=== PATIENT | male | born 1935 | race Two or more races ===

== ENCOUNTER 2017-04-11 18:56 | Inpatient (IN) | payer OTHER ==
[~2017-04-11] VITALS: Ht 165.1 cm; Wt 65.1 kg
[2017-04-11 20:19] LABS: Basophils # (auto) 0 uL; Basophils % (auto) 0.2 % (0.0-2.0); Eosinophils # (auto) 0.2 uL; Eosinophils % (auto) 1.5 % (0.0-7.0); Hematocrit 31.5 % (41.0-53.0); Lymphocytes # (auto) 1.9 uL; Lymphocytes % (auto) 19.2 % (10.0-50.0); Mean Corpuscular Hemoglobin 31.9 pg (28.0-32.0); Mean Corpuscular Volume 91.1 fL (80.0-100.0); Mean Platelet Volume 7.3 fL (6.9-10.8); Monocytes # (auto) 1.3 uL; Monocytes % (auto) 13.6 % (0.0-12.0); Neutrophils # (auto) 6.5 uL; Neutrophils % (auto) 65.5 % (37.0-80.0); Platelet Count (auto) 165 10^3/uL (140-450); Red Cell Distribution Width 13.7 % (11.8-14.3); White Blood Cell 9.9 10^3/uL (4.4-10.8)
[2017-04-11 20:35] LABS: INR 0.98 (0.9-1.15); Partial Thromboplastin Time 38.8 sec (22.64-33.71); Prothrombin Time 10.7 sec (9.37-12.3)
[2017-04-11 20:42] LABS: Albumin 2.7 g/dL (3.4-5.0); Potassium 3.5 mmol/L (3.5-5.1)
[2017-04-11 20:45] LABS: BUN/Creatinine Ratio 16.5
[2017-04-11 20:50] LABS: Bilirubin, Total 0.6 mg/dL (0.2-1.0); Total Protein 6.2 g/dL (6.4-8.2)
[2017-04-11 21:32] LABS: B-Type Natriuretic Peptide 279.2 pg/mL (0-100)
[2017-04-11 21:39] LABS: Temperature: 23.1 C (20.0-25.0)
[2017-04-12] VITALS (7 sets, daily range): BP systolic 115–140; BP diastolic 52–61
[2017-04-12 00:24] LABS: Urine Bilirubin Negative (Negative); Urine Blood TRACE /uL (Negative); Urine Color Yellow (Yellow); Urine Glucose Normal (Normal); Urine Ketone Negative (Negative); Urine Nitrite Negative (Negative); Urine RBC 18 /hpf (0 - 3); Urine Squamous Epithelial Cell FEW /hpf (<5); Urine Urobilinogen Normal (Negative); Urine WBC Clumps PRESENT /hpf (None Seen); Urine pH 5.5 (5.0-8.0)
[2017-04-12] MEDS ORDERED: cefTRIAXone 1GM/50ML D5W 50 ML IV ONE (01:45)
[2017-04-12] MEDS ORDERED: NITROGLYCERIN 0.4 MG SL TAB SL PRN (02:00)
[2017-04-12] MEDS ORDERED: HYDROcodone-ACET 5/325MG TAB PO PRN (02:00)
[2017-04-12] MEDS ORDERED: DOCUSATE SOD 100 MG CAP PO PRN (02:00)
[2017-04-12] MEDS ORDERED: FUROSEMIDE 20 MG/2 ML VIAL IV ONE (02:00)
[2017-04-12] MEDS ORDERED: MORPHINE SULF INJ 2 MG/ML SYRINGE 1ML IV PRN (02:00)
[2017-04-12] MEDS ORDERED: ACETAMINOPHEN 325 MG TAB PO PRN (02:00)
[2017-04-12] MEDS ORDERED: ONDANSETRON HCL 4 MG/2 ML VIAL IV PRN (02:00)
[2017-04-12 03:45] LABS: BUN/Creatinine Ratio 17.9; Calcium 8.2 mg/dL (8.5-10.1); Potassium 3.4 mmol/L (3.5-5.1)
[2017-04-12] MEDS ORDERED: ALL100T PO (06:11)
[2017-04-12] MEDS ORDERED: SULF-92 PO (06:11)
[2017-04-12] MEDS ORDERED: DILT240C59 PO (06:12)
[2017-04-12] MEDS ORDERED: PANT1INJ3 PO (06:12)
[2017-04-12] MEDS ORDERED: FER325T PO (06:13)
[2017-04-12] MEDS ORDERED: LOSA50TA30 PO (06:13)
[2017-04-12] MEDS ORDERED: DIPH50TA9 PO (06:14)
[2017-04-12] MEDS ORDERED: PRAV20TA3 PO (06:14)
[2017-04-12] MEDS ORDERED: ONDA4TAB5 PO (06:15)
[2017-04-12] MEDS ORDERED: SERT-160 PO (06:15)
[2017-04-12] MEDS ORDERED: LOPE1TAB9 PO (06:16)
[2017-04-12] MEDS ORDERED: LOPE1SUS PO (06:16)
[2017-04-12] MEDS ORDERED: ACETTAB85 PO (06:17)
[2017-04-12] MEDS ORDERED: CLO01T PO (06:17)
[2017-04-12] MEDS ORDERED: MIN25T PO (06:18)
[2017-04-12] MEDS: FAMOTIDINE 20 MG TAB PO SCH ×2 (09:48→21:14)
[2017-04-12] MEDS: cefTRIAXone 1GM/50ML D5W 50 ML IV SCH (09:48)
[2017-04-12] MEDS ORDERED: HCTZ 25 MG TAB PO SCH (10:00)
[2017-04-12] MEDS ORDERED: LOSARTAN POTASSIUM 50 MG TAB PO SCH (10:00)
[2017-04-12] MEDS ORDERED: ENOXAPARIN SOD 40 MG/0.4 ML SYRINGE SC SCH (10:00)
[2017-04-12] MEDS: SERTRALINE HCL 50 MG TAB PO SCH (10:03)
[2017-04-12] MEDS ORDERED: APIXABAN PO SCH (11:15)
[2017-04-12] MEDS: APIXABAN 2.5 MG TAB PO SCH ×2 (11:55→21:14)
[2017-04-12 12:38] LABS: Cholesterol 96 mg/dL (< 200); HDL Cholesterol 55 mg/dL (40-59); LDL Cholesterol 49 mg/dL (< 100); Triglycerides 33 mg/dL (< 150)
[2017-04-12] MEDS: SODIUM CHLORIDE 0.9% 1,000 ML IV SCH (15:45)
[2017-04-12] MEDS: PRAVASTATIN SODIUM 20 MG TAB PO SCH (21:14)
[2017-04-13 06:19] VITALS: BP 153/71
[2017-04-13 06:30] LABS: Basophils # (auto) 0 uL; Basophils % (auto) 0.3 % (0.0-2.0); Eosinophils # (auto) 0 uL; Eosinophils % (auto) 0.5 % (0.0-7.0); Hematocrit 37.4 % (41.0-53.0); Hemoglobin 12.8 g/dL (13.5-17.5); Lymphocytes # (auto) 0.9 uL; Lymphocytes % (auto) 10.8 % (10.0-50.0); Mean Corpuscular Hemoglobin 31.6 pg (28.0-32.0); Mean Corpuscular Hgb Conc. 34.3 g/dL (32.0-36.0); Mean Corpuscular Volume 92.2 fL (80.0-100.0); Mean Platelet Volume 7.1 fL (6.9-10.8); Monocytes % (auto) 11.8 % (0.0-12.0); Neutrophils # (auto) 6.2 uL; Neutrophils % (auto) 76.6 % (37.0-80.0); Platelet Count (auto) 213 10^3/uL (140-450); Red Cell Distribution Width 13.6 % (11.8-14.3); White Blood Cell 8.1 10^3/uL (4.4-10.8)
[2017-04-13 06:41] LABS: B-Type Natriuretic Peptide 261.04 pg/mL (0-100)
[2017-04-13 06:57] LABS: Temperature: 21.9 C (20.0-25.0)
[2017-04-13 07:01] LABS: Albumin 2.9 g/dL (3.4-5.0); BUN/Creatinine Ratio 21.1; Bilirubin, Total 0.5 mg/dL (0.2-1.0); Calcium 8.8 mg/dL (8.5-10.1); Magnesium 2.1 mg/dL (1.6-2.6); Potassium 3.4 mmol/L (3.5-5.1); Total Protein 7.2 g/dL (6.4-8.2)
[2017-04-13] MEDS: SODIUM CHLORIDE 0.9% 1,000 ML IV SCH (08:25)
[2017-04-13 09:00] VITALS: BP 149/73
[2017-04-13] MEDS: SERTRALINE HCL 50 MG TAB PO SCH (10:00)
[2017-04-13] MEDS: cefTRIAXone 1GM/50ML D5W 50 ML IV SCH (10:15)
[2017-04-13] MEDS: FAMOTIDINE 20 MG TAB PO SCH ×2 (10:19→22:00)
[2017-04-13] MEDS: APIXABAN 2.5 MG TAB PO SCH ×2 (10:19→22:00)
[2017-04-13] MEDS: NEOMYCIN-BACITRACIN-POLYM UNITDOSE PKG TOP OINT TOP SCH (10:20)
[2017-04-13 13:00] VITALS: BP 145/65
[2017-04-13] MEDS ORDERED: HALOPERIDOL 5 MG TAB PO PRN (16:00)
[2017-04-13] MEDS ORDERED: POTASSIUM CHL 20 Meq TABLET PO ONE (16:00)
[2017-04-13] MEDS ORDERED: SOD CHL 0.9%/ KCL 20MEQ 1,000 ML IV SCH (16:00)
[2017-04-13 17:00] VITALS: BP 162/90
[2017-04-13] MEDS ORDERED: BACITRACIN TOP OINT 1 UD PKG TOP SCH (17:00)
[2017-04-13] MEDS: METOPROLOL TARTRATE 25 MG TAB PO SCH ×2 (18:31→22:27)
[2017-04-13 20:00] VITALS: BP 154/92
[2017-04-13 21:40] VITALS: BP 154/92
[2017-04-13] MEDS: PRAVASTATIN SODIUM 20 MG TAB PO SCH (22:00)
[2017-04-14 04:59] VITALS: BP 143/70
[2017-04-14 07:08] LABS: Calcium 8.9 mg/dL (8.5-10.1); Potassium 4.2 mmol/L (3.5-5.1)
[2017-04-14 07:10] LABS: BUN/Creatinine Ratio 22.2
[2017-04-14 09:05] VITALS: BP 143/66
[2017-04-14] MEDS: APIXABAN 2.5 MG TAB PO SCH ×2 (09:20→21:38)
[2017-04-14] MEDS: FAMOTIDINE 20 MG TAB PO SCH ×2 (09:20→21:38)
[2017-04-14] MEDS: cefTRIAXone 1GM/50ML D5W 50 ML IV SCH (09:20)
[2017-04-14] MEDS: METOPROLOL TARTRATE 25 MG TAB PO SCH (09:21)
[2017-04-14] MEDS: NEOMYCIN-BACITRACIN-POLYM UNITDOSE PKG TOP OINT TOP SCH (10:00)
[2017-04-14] MEDS: SERTRALINE HCL 50 MG TAB PO SCH (10:00)
[2017-04-14 11:20] LABS: Temperature: 23.1 C (20.0-25.0)
[2017-04-14 12:52] VITALS: BP 138/70
[2017-04-14] MEDS ORDERED: DILTIAZEM HCL 120MG ER CAP PO ONE (13:00)
[2017-04-14 16:33] VITALS: BP 139/68
[2017-04-14 20:00] VITALS: BP 155/92
[2017-04-14] MEDS: PRAVASTATIN SODIUM 20 MG TAB PO SCH (21:38)
[2017-04-15] MEDS: cefTRIAXone 1GM/50ML D5W 50 ML IV SCH (08:34)
[2017-04-15 09:03] VITALS: BP 148/73
[2017-04-15] MEDS: FAMOTIDINE 20 MG TAB PO SCH (09:10)
[2017-04-15] MEDS: NEOMYCIN-BACITRACIN-POLYM UNITDOSE PKG TOP OINT TOP SCH (09:10)
[2017-04-15] MEDS: APIXABAN 2.5 MG TAB PO SCH (09:11)
[2017-04-15] MEDS: SERTRALINE HCL 50 MG TAB PO SCH (09:11)
[2017-04-15] MEDS ORDERED: DILTIAZEM HCL 120MG ER CAP PO SCH (10:00)
[2017-04-15 12:18] VITALS: BP 149/67
[2017-04-15] MEDS ORDERED: LOSARTAN POTASSIUM 25 MG TAB PO ONE (13:30)
[2017-04-15] MEDS ORDERED: LEVO250T45 PO ×2 (14:36→15:31)
[2017-04-15] MEDS ORDERED: SACC250C PO ×2 (14:36→15:31)
[2017-04-15] MEDS ORDERED: CLOP75TA28 PO (14:52)
[2017-04-15 15:05] VITALS: BP 149/67
== END 2017-04-15 18:18 | disposition home health service (06) | DRG 682 ==
LOC: ER 19:03 → TELE 19:04 → TELE-WESTW 04-12 03:35
PROVIDERS: ADMIT Nurse Practitioner; ATTEND Internal Medicine
DX: N17.0 Acute kidney failure with tubular necrosis (principal); G93.41 Metabolic encephalopathy; N39.0 Urinary tract infection, site not specified; E87.1 Hypo-osmolality and hyponatremia; I50.9 Heart failure, unspecified; I11.0 Hypertensive heart disease with heart failure; G30.9 Alzheimer's disease, unspecified; F02.80 Dementia in other diseases classified elsewhere, unspecified severity, without behavioral disturbance, psychotic disturbance, mood disturbance, and anxiety; I45.10 Unspecified right bundle-branch block; I48.91 Unspecified atrial fibrillation; Z79.01 Long term (current) use of anticoagulants; Z79.899 Other long term (current) drug therapy; Z91.81 History of falling; I69.320 Aphasia following cerebral infarction
CPT/HCPCS: 36415; 51702; 70450; 70551; 71010; 80048; 80053; 80061; 81001; 82607; 82746; 83735; 83880; 84443; 84484; 85025; 85610; 85730; 87086; 93005; 93306; 95819; 96365; 96375; 97116; 97530; J0696

== ENCOUNTER 2017-04-27 14:51 | Inpatient (IN) | payer OTHER ==
[~2017-04-27] VITALS: Ht 172.7 cm; Wt 59.8 kg
[~2017-04-27 14:51] MED LIST: ACETTAB85 PO; ALL100T PO; CLO01T PO; CLOP75TA28 PO; DILT240C59 PO; DIPH50TA9 PO; FER325T PO; LEVO250T45 PO; LOPE1SUS PO; LOPE1TAB9 PO; LOSA50TA30 PO; MIN25T PO; ONDA4TAB5 PO; PANT1INJ3 PO; PRAV20TA3 PO; SACC250C PO; SERT-160 PO
[2017-04-27 15:37] LABS: Basophils # (auto) 0.1 uL; Basophils % (auto) 1.1 % (0.0-2.0); Eosinophils # (auto) 0.1 uL; Eosinophils % (auto) 1.2 % (0.0-7.0); Hematocrit 38.1 % (41.0-53.0); Hemoglobin 12.8 g/dL (13.5-17.5); Lymphocytes # (auto) 2.6 uL; Lymphocytes % (auto) 27.2 % (10.0-50.0); Mean Corpuscular Hemoglobin 31.5 pg (28.0-32.0); Mean Corpuscular Hgb Conc. 33.5 g/dL (32.0-36.0); Mean Corpuscular Volume 93.9 fL (80.0-100.0); Monocytes # (auto) 0.8 uL; Monocytes % (auto) 8.4 % (0.0-12.0); Neutrophils # (auto) 5.8 uL; Neutrophils % (auto) 62.1 % (37.0-80.0); Nucleated Red Blood Cells % 0.1 %; Platelet Count (auto) 288 10^3/uL (140-450); Red Cell Distribution Width 14.7 % (11.8-14.3); White Blood Cell 9.4 10^3/uL (4.4-10.8)
[2017-04-27 15:48] LABS: INR 0.98 (0.9-1.15); Partial Thromboplastin Time 29.7 sec (22.64-33.71); Prothrombin Time 10.7 sec (9.37-12.3)
[2017-04-27 15:58] LABS: BUN/Creatinine Ratio 19.8; Bilirubin, Total 0.5 mg/dL (0.2-1.0); Calcium 8.7 mg/dL (8.5-10.1); Magnesium 2.1 mg/dL (1.6-2.6); Potassium 4.8 mmol/L (3.5-5.1); Total Protein 7.1 g/dL (6.4-8.2)
[2017-04-27] MEDS ORDERED: LORazepam 0.5 MG TAB PO PRN (16:30)
[2017-04-27] MEDS ORDERED: TEMAZEPAM 15 MG CAP PO PRN (16:30)
[2017-04-27] MEDS ORDERED: MORPHINE SULF INJ 2 MG/ML SYRINGE 1ML IV PRN ×2 (16:30)
[2017-04-27] MEDS ORDERED: PROMETHAZINE HCL 25 MG/ML 1ML IV PRN (16:30)
[2017-04-27] MEDS ORDERED: HYDROcodone-ACET 5/325MG TAB PO PRN (16:30)
[2017-04-27] MEDS ORDERED: ACETAMINOPHEN 500 MG TAB PO PRN (16:30)
[2017-04-27] MEDS ORDERED: NITROGLYCERIN 0.4 MG SL TAB SL PRN (16:30)
[2017-04-27] MEDS: ONDANSETRON ODT 4 MG TAB PO SCH (18:08)
[2017-04-27 19:16] LABS: Urine Bilirubin Negative (Negative); Urine Blood TRACE /uL (Negative); Urine Color Yellow (Yellow); Urine Glucose Normal (Normal); Urine Ketone Negative (Negative); Urine Nitrite Negative (Negative); Urine RBC 4 /hpf (0 - 3); Urine Squamous Epithelial Cell FEW /hpf (<5); Urine Urobilinogen Normal (Negative)
[2017-04-27 19:49] VITALS: BP 145/58
[2017-04-27 20:00] VITALS: BP 145/58
[2017-04-28] MEDS: ONDANSETRON ODT 4 MG TAB PO SCH ×5 (00:43→18:00)
[2017-04-28 05:26] VITALS: BP 133/59
[2017-04-28 09:00] VITALS: BP 139/71
[2017-04-28] MEDS ORDERED: TRIA0.1P11 TOP (09:32)
[2017-04-28] MEDS ORDERED: LACT10SO3 PO (09:33)
[2017-04-28] MEDS ORDERED: PATIENTS OWN MEDICATION (Sertraline Hcl 100 MG) PO SCH (10:00)
[2017-04-28] MEDS ORDERED: PATIENTS OWN MEDICATION (Losartan Potassium & Hydrochlo (Losartan Potassium/Hydroc) 1 TAB) PO SCH ×2 (10:00)
[2017-04-28] MEDS ORDERED: HCTZ 25 MG TAB PO SCH (10:00)
[2017-04-28] MEDS ORDERED: SERTRALINE HCL 50 MG TAB PO SCH (10:00)
[2017-04-28] MEDS ORDERED: cloNIDine HCL 0.1 MG TAB PO SCH (10:00)
[2017-04-28] MEDS: MINOXIDIL 2.5 MG TAB PO SCH (10:36)
[2017-04-28] MEDS: DILTIAZEM HCL 120MG ER CAP PO SCH (10:37)
[2017-04-28] MEDS: LOSARTAN POTASSIUM 50 MG TAB PO SCH (10:38)
[2017-04-28] MEDS: PANTOPRAZOLE 40 MG TAB PO SCH (10:39)
[2017-04-28] MEDS: PRAVASTATIN SODIUM 20 MG TAB PO SCH (10:39)
[2017-04-28] MEDS: FERROUS SULFATE 325 MG TAB PO SCH (10:39)
[2017-04-28] MEDS: CLOPIDOGREL BISULFATE 75 MG TAB PO SCH (10:40)
[2017-04-28] MEDS: ALLOPURINOL 100 MG TAB PO SCH (10:40)
[2017-04-28 13:00] VITALS: BP 136/67
[2017-04-28 16:25] VITALS: BP 138/61
[2017-04-28 22:59] VITALS: BP 131/61
[2017-04-29] MEDS: ONDANSETRON ODT 4 MG TAB PO SCH ×2 (01:44→05:50)
[2017-04-29 05:00] VITALS: BP 155/66
[2017-04-29 06:08] LABS: Basophils # (auto) 0.1 uL; Basophils % (auto) 0.8 % (0.0-2.0); Eosinophils # (auto) 0.1 uL; Hematocrit 33.3 % (41.0-53.0); Hemoglobin 11.4 g/dL (13.5-17.5); Lymphocytes # (auto) 1.6 uL; Lymphocytes % (auto) 23.3 % (10.0-50.0); Mean Corpuscular Hemoglobin 31.6 pg (28.0-32.0); Mean Corpuscular Hgb Conc. 34.1 g/dL (32.0-36.0); Mean Corpuscular Volume 92.6 fL (80.0-100.0); Mean Platelet Volume 6.7 fL (6.9-10.8); Monocytes # (auto) 0.7 uL; Monocytes % (auto) 9.5 % (0.0-12.0); Neutrophils # (auto) 4.5 uL; Neutrophils % (auto) 64.4 % (37.0-80.0); Platelet Count (auto) 251 10^3/uL (140-450); Red Cell Distribution Width 14.3 % (11.8-14.3)
[2017-04-29 06:30] LABS: Potassium 3.8 mmol/L (3.5-5.1)
[2017-04-29 06:33] LABS: Calcium 8.9 mg/dL (8.5-10.1)
[2017-04-29 07:46] VITALS: BP 127/70
[2017-04-29] MEDS: CLOPIDOGREL BISULFATE 75 MG TAB PO SCH (10:00)
[2017-04-29] MEDS ORDERED: ASPirin-EC 81 mg tab PO SCH (10:00)
[2017-04-29] MEDS: LOSARTAN POTASSIUM 50 MG TAB PO SCH (10:41)
[2017-04-29] MEDS: FERROUS SULFATE 325 MG TAB PO SCH (10:41)
[2017-04-29] MEDS: PRAVASTATIN SODIUM 20 MG TAB PO SCH (10:43)
[2017-04-29] MEDS: DILTIAZEM HCL 120MG ER CAP PO SCH (10:43)
[2017-04-29] MEDS: MINOXIDIL 2.5 MG TAB PO SCH (10:43)
[2017-04-29] MEDS: PANTOPRAZOLE 40 MG TAB PO SCH (10:44)
[2017-04-29] MEDS: ALLOPURINOL 100 MG TAB PO SCH (10:44)
[2017-04-29 10:46] VITALS: BP 127/70
[2017-04-29 14:09] VITALS: BP 143/73
== END 2017-04-29 16:30 | disposition home health service (06) | DRG 69 ==
LOC: EDBD 14:51 → ER 14:53 → TELE 14:54 → TELE-EAST 19:30
PROVIDERS: ADMIT Internal Medicine; ATTEND Internal Medicine
DX: G45.9 Transient cerebral ischemic attack, unspecified (principal); G93.41 Metabolic encephalopathy; I48.91 Unspecified atrial fibrillation; I69.351 Hemiplegia and hemiparesis following cerebral infarction affecting right dominant side; D64.9 Anemia, unspecified; I50.9 Heart failure, unspecified; I11.0 Hypertensive heart disease with heart failure; G30.9 Alzheimer's disease, unspecified; R47.01 Aphasia; F01.50 Vascular dementia, unspecified severity, without behavioral disturbance, psychotic disturbance, mood disturbance, and anxiety; F02.80 Dementia in other diseases classified elsewhere, unspecified severity, without behavioral disturbance, psychotic disturbance, mood disturbance, and anxiety; M10.9 Gout, unspecified; K21.9 Gastro-esophageal reflux disease without esophagitis; Z79.02 Long term (current) use of antithrombotics/antiplatelets; Z79.82 Long term (current) use of aspirin; Z79.899 Other long term (current) drug therapy; Z88.0 Allergy status to penicillin
CPT/HCPCS: 36415; 51702; 70450; 71010; 80048; 80053; 81001; 82550; 82607; 83605; 83735; 84443; 85025; 85610; 85652; 85730; 87040; 87081; 93005; 93886; 94761; 95819; 97116; 97163; 97530; Q0162

== ENCOUNTER → 2017-06-22 | Emergency (ER) | payer OTHER ==
[~2017-06-22] MED LIST changes: -ACETTAB85 PO; -CLO01T PO; -DIPH50TA9 PO; -LEVO250T45 PO; -LOPE1SUS PO; -LOPE1TAB9 PO; -ONDA4TAB5 PO; -SERT-160 PO; +TRIA0.1P11 TOP
== END | disposition left against medical advice (07) ==
LOC: ER 22:11
DX: R11.10 Vomiting, unspecified (principal); Z53.21 Procedure and treatment not carried out due to patient leaving prior to being seen by health care provider

== ENCOUNTER 2017-07-09 18:33 | Inpatient (IN) | payer OTHER ==
[~2017-07-09] VITALS: Ht 167.6 cm; Wt 58.4 kg
[~2017-07-09 18:33] MED LIST changes: +ONDA4TAB5 PO
[2017-07-09 20:23] LABS: Basophils # (auto) 0.1 uL; Basophils % (auto) 0.6 % (0.0-2.0); Eosinophils # (auto) 0.1 uL; Eosinophils % (auto) 1.8 % (0.0-7.0); Hematocrit 35.1 % (41.0-53.0); Hemoglobin 11.8 g/dL (13.5-17.5); Lymphocytes # (auto) 1.7 uL; Lymphocytes % (auto) 21.2 % (10.0-50.0); Mean Corpuscular Hemoglobin 31.4 pg (28.0-32.0); Mean Corpuscular Hgb Conc. 33.6 g/dL (32.0-36.0); Mean Corpuscular Volume 93.5 fL (80.0-100.0); Monocytes # (auto) 0.9 uL; Monocytes % (auto) 10.6 % (0.0-12.0); Neutrophils # (auto) 5.3 uL; Neutrophils % (auto) 65.8 % (37.0-80.0); Nucleated Red Blood Cells % 0.1 %; Platelet Count (auto) 354 10^3/uL (140-450); Red Blood Cells 3.75 10^6/uL (4.5-5.90); Red Cell Distribution Width 13.8 % (11.8-14.3)
[2017-07-09 20:46] LABS: Albumin 3.2 g/dL (3.4-5.0); Bilirubin, Total 0.4 mg/dL (0.2-1.0); Calcium 9.1 mg/dL (8.5-10.1); Magnesium 2.5 mg/dL (1.6-2.6); Potassium 3.3 mmol/L (3.5-5.1); Total Protein 7.3 g/dL (6.4-8.2)
[2017-07-10] MEDS ORDERED: SODIUM CHLORIDE 0.9% 1,000 ML IV ONE (02:39)
[2017-07-10] MEDS ORDERED: ONDANSETRON HCL 4 MG/2 ML VIAL IV ONE (03:30)
[2017-07-10 05:06] LABS: Urine Bacteria MANY /hpf (None Seen); Urine Blood 1+ /uL (Negative); Urine Hyaline Cast FEW /lpf (0 - 2); Urine Mucus FEW (None Seen); Urine Specific Gravity 1.018 (1.001-1.035); Urine WBC 67 /hpf (0 - 3)
[2017-07-10] MEDS ORDERED: POTASSIUM CHL 20 Meq TABLET PO ONE (06:15)
[2017-07-10] MEDS ORDERED: LEVOFLOXACIN 500MG 100 ML IV ONE (06:15)
[2017-07-10] MEDS ORDERED: ACETAMINOPHEN 500 MG TAB PO PRN (06:30)
[2017-07-10] MEDS ORDERED: HYDROcodone-ACET 5/325MG TAB PO PRN (06:30)
[2017-07-10 06:40] LABS: Basophils # (auto) 0.1 uL; Basophils % (auto) 1.1 % (0.0-2.0); Eosinophils # (auto) 0.2 uL; Eosinophils % (auto) 2.1 % (0.0-7.0); Hemoglobin 11.2 g/dL (13.5-17.5); Lymphocytes % (auto) 22.3 % (10.0-50.0); Mean Corpuscular Hemoglobin 32.9 pg (28.0-32.0); Mean Corpuscular Volume 94.2 fL (80.0-100.0); Monocytes # (auto) 0.9 uL; Monocytes % (auto) 9.7 % (0.0-12.0); Neutrophils # (auto) 5.7 uL; Neutrophils % (auto) 64.8 % (37.0-80.0); Platelet Count (auto) 308 10^3/uL (140-450); White Blood Cell 8.8 10^3/uL (4.4-10.8)
[2017-07-10 07:05] LABS: BUN/Creatinine Ratio 25.9; Calcium 8.6 mg/dL (8.5-10.1); Potassium 3.4 mmol/L (3.5-5.1)
[2017-07-10] MEDS: cefTRIAXone 1GM/10ml IVPUSH 10 ML IV SCH (08:59)
[2017-07-10] MEDS: DILTIAZEM HCL 120MG ER CAP PO SCH (10:57)
[2017-07-10] MEDS: LOSARTAN POTASSIUM 50 MG TAB PO SCH (10:58)
[2017-07-10] MEDS: PANTOPRAZOLE 40 MG TAB PO SCH (10:58)
[2017-07-10 15:36] VITALS: BP 125/60
[2017-07-10] MEDS ORDERED: DILT240C49 PO (21:01)
[2017-07-10] MEDS ORDERED: CLON0.1T PO (21:01)
[2017-07-10] MEDS ORDERED: CIPR-173 PO (21:01)
[2017-07-10 22:00] VITALS: BP 121/70
[2017-07-11 05:00] VITALS: BP 143/77
[2017-07-11] MEDS: PANTOPRAZOLE 40 MG TAB PO SCH (08:12)
[2017-07-11] MEDS: LOSARTAN POTASSIUM 50 MG TAB PO SCH (08:13)
[2017-07-11] MEDS: DILTIAZEM HCL 120MG ER CAP PO SCH (08:13)
[2017-07-11] MEDS: cefTRIAXone 1GM/10ml IVPUSH 10 ML IV SCH (08:14)
[2017-07-11 09:00] VITALS: BP 133/75
[2017-07-11 13:00] VITALS: BP 130/69
[2017-07-11 17:00] VITALS: BP 120/70
[2017-07-11] MEDS ORDERED: LORazepam 0.5 MG TAB PO PRN (17:15)
[2017-07-11] MEDS ORDERED: ALBUTEROL SULF 2.5 MG/0.5ML(0.5%) NEB SOLN NEB PRN (17:15)
[2017-07-11] MEDS ORDERED: TEMAZEPAM 15 MG CAP PO PRN (17:15)
[2017-07-11] MEDS ORDERED: PROMETHAZINE HCL 25 MG/ML 1ML IV PRN (17:15)
[2017-07-11] MEDS ORDERED: MORPHINE SULF INJ 2 MG/ML SYRINGE 1ML IV PRN (17:15)
[2017-07-11] MEDS ORDERED: OSELTAMIVIR 75 MG CAP PO ONE (17:15)
[2017-07-11] MEDS: SODIUM CHLORIDE 0.9% 1,000 ML IV SCH (18:49)
[2017-07-11] MEDS: ALBUTEROL SULF 2.5 MG/0.5ML(0.5%) NEB SOLN NEB SCH (19:23)
[2017-07-11 22:00] VITALS: BP 139/63
[2017-07-11] MEDS: OSELTAMIVIR 30 MG CAP PO SCH (22:14)
[2017-07-12] VITALS (7 sets, daily range): BP systolic 122–142; BP diastolic 62–76
[2017-07-12] MEDS: ALBUTEROL SULF 2.5 MG/0.5ML(0.5%) NEB SOLN NEB SCH ×4 (00:28→21:02)
[2017-07-12] MEDS: SODIUM CHLORIDE 0.9% 1,000 ML IV SCH ×3 (05:23→23:09)
[2017-07-12] MEDS: ENOXAPARIN SOD 40 MG/0.4 ML SYRINGE SC SCH (11:45)
[2017-07-12] MEDS: PANTOPRAZOLE 40 MG TAB PO SCH (11:45)
[2017-07-12] MEDS: OSELTAMIVIR 30 MG CAP PO SCH ×2 (11:45→22:00)
[2017-07-12] MEDS: DILTIAZEM HCL 120MG ER CAP PO SCH (11:46)
[2017-07-12] MEDS: LOSARTAN POTASSIUM 50 MG TAB PO SCH (11:46)
[2017-07-12] MEDS: cefTRIAXone 1GM/10ml IVPUSH 10 ML IV SCH (11:46)
[2017-07-12] MEDS: ONDANSETRON HCL 4 MG/2 ML VIAL IV PRN (11:54)
[2017-07-12] MEDS ORDERED: POTASSIUM CHL 20 Meq TABLET PO ONE (13:15)
[2017-07-12] MEDS: MEGESTROL ACET 400MG/10ML ORAL SUSP PO SCH (22:14)
[2017-07-13] MEDS: ALBUTEROL SULF 2.5 MG/0.5ML(0.5%) NEB SOLN NEB SCH ×4 (01:35→20:27)
[2017-07-13 05:00] VITALS: BP 121/63
[2017-07-13 08:00] VITALS: BP 128/65
[2017-07-13 09:00] VITALS: BP_SYST 128; BP_SYST 137; BP_DIAS 56; BP_DIAS 77
[2017-07-13] MEDS: PANTOPRAZOLE 40 MG TAB PO SCH ×2 (09:55→22:24)
[2017-07-13] MEDS: LOSARTAN POTASSIUM 50 MG TAB PO SCH (09:56)
[2017-07-13] MEDS: MEGESTROL ACET 400MG/10ML ORAL SUSP PO SCH ×2 (09:56→22:24)
[2017-07-13] MEDS: OSELTAMIVIR 30 MG CAP PO SCH ×2 (09:56→22:00)
[2017-07-13] MEDS: ENOXAPARIN SOD 40 MG/0.4 ML SYRINGE SC SCH (09:56)
[2017-07-13] MEDS: DILTIAZEM HCL 120MG ER CAP PO SCH (09:57)
[2017-07-13] MEDS: cefTRIAXone 1GM/10ml IVPUSH 10 ML IV SCH (09:57)
[2017-07-13] MEDS: SODIUM CHLORIDE 0.9% 1,000 ML IV SCH ×2 (09:57→19:09)
[2017-07-13 11:18] LABS: Amylase 92 U/L (25-115); Lipase 364 U/L (73-393)
[2017-07-13 12:50] VITALS: BP 128/56
[2017-07-13 14:00] LABS: INR 0.98 (0.9-1.15); Prothrombin Time 10.7 sec (9.37-12.3)
[2017-07-13 17:00] VITALS: BP 125/74
[2017-07-13] MEDS: BOOST PLUS 8 ounce PO SCH (17:36)
[2017-07-13 22:00] VITALS: BP 147/86
[2017-07-14] MEDS: ALBUTEROL SULF 2.5 MG/0.5ML(0.5%) NEB SOLN NEB SCH ×4 (00:45→20:50)
[2017-07-14 05:00] VITALS: BP 148/78
[2017-07-14] MEDS: SODIUM CHLORIDE 0.9% 1,000 ML IV SCH ×2 (05:09→15:45)
[2017-07-14 08:00] VITALS: BP 138/78
[2017-07-14 09:00] VITALS: BP 138/78
[2017-07-14] MEDS: BOOST PLUS 8 ounce PO SCH ×2 (09:27→19:41)
[2017-07-14] MEDS: cefTRIAXone 1GM/10ml IVPUSH 10 ML IV SCH (09:27)
[2017-07-14] MEDS: OSELTAMIVIR 30 MG CAP PO SCH ×2 (10:00→21:41)
[2017-07-14] MEDS: DILTIAZEM HCL 120MG ER CAP PO SCH (11:52)
[2017-07-14] MEDS: ENOXAPARIN SOD 40 MG/0.4 ML SYRINGE SC SCH (11:53)
[2017-07-14] MEDS: PANTOPRAZOLE 40 MG TAB PO SCH ×2 (11:53→21:41)
[2017-07-14] MEDS: MEGESTROL ACET 400MG/10ML ORAL SUSP PO SCH ×2 (11:53→21:41)
[2017-07-14] MEDS: LOSARTAN POTASSIUM 50 MG TAB PO SCH (11:53)
[2017-07-14 13:00] VITALS: BP 135/68
[2017-07-14 17:00] VITALS: BP 135/60
[2017-07-14 18:50] LABS: BUN/Creatinine Ratio 12.9; Potassium 4.2 mmol/L (3.5-5.1)
[2017-07-14 22:00] VITALS: BP 126/75
[2017-07-15] MEDS: SODIUM CHLORIDE 0.9% 1,000 ML IV SCH ×2 (01:11→12:06)
[2017-07-15] MEDS: ALBUTEROL SULF 2.5 MG/0.5ML(0.5%) NEB SOLN NEB SCH ×3 (01:53→11:53)
[2017-07-15 03:45] VITALS: BP 126/75
[2017-07-15] MEDS: ONDANSETRON HCL 4 MG/2 ML VIAL IV PRN (04:26)
[2017-07-15 05:00] VITALS: BP 166/69
[2017-07-15 06:03] LABS: Basophils # (auto) 0 uL; Basophils % (auto) 0.6 % (0.0-2.0); Eosinophils # (auto) 0.3 uL; Eosinophils % (auto) 4.4 % (0.0-7.0); Hemoglobin 10.6 g/dL (13.5-17.5); Lymphocytes # (auto) 1.6 uL; Lymphocytes % (auto) 21.9 % (10.0-50.0); Mean Corpuscular Hgb Conc. 34.1 g/dL (32.0-36.0); Mean Corpuscular Volume 93.9 fL (80.0-100.0); Monocytes # (auto) 0.6 uL; Monocytes % (auto) 8.4 % (0.0-12.0); Neutrophils # (auto) 4.8 uL; Neutrophils % (auto) 64.7 % (37.0-80.0); Nucleated Red Blood Cells % 0.1 %; Platelet Count (auto) 278 10^3/uL (140-450); Red Cell Distribution Width 14.3 % (11.8-14.3); White Blood Cell 7.4 10^3/uL (4.4-10.8)
[2017-07-15 06:24] LABS: Albumin 3.1 g/dL (3.4-5.0); BUN/Creatinine Ratio 13.7; Calcium 8.6 mg/dL (8.5-10.1); Potassium 3.7 mmol/L (3.5-5.1)
[2017-07-15 06:27] LABS: Bilirubin, Total 0.4 mg/dL (0.2-1.0); Total Protein 6.6 g/dL (6.4-8.2)
[2017-07-15 08:00] VITALS: BP 136/81
[2017-07-15] MEDS: BOOST PLUS 8 ounce PO SCH (08:00)
[2017-07-15] MEDS ORDERED: LIDOCAINE VISCOUS 2% 15ML UD ONE (08:21)
[2017-07-15] MEDS ORDERED: NALOXONE HCL 0.4 MG/ML VIAL ONE (08:21)
[2017-07-15] MEDS ORDERED: FLUMAZENIL 0.1 MG/ML INJ 10ML MDV IV ONE (08:21)
[2017-07-15] MEDS ORDERED: SODIUM CHLORIDE LOCK 10 ML ONE (08:21)
[2017-07-15] MEDS ORDERED: fentaNYL CITRATE 100 MCG/2 ML VL ONE (08:22)
[2017-07-15] MEDS ORDERED: diphenhdrAMINE HCL 50 MG/1 ML VL ONE (08:22)
[2017-07-15] MEDS ORDERED: MIDAZOLAM HCL 5 MG/ML-1ML VIAL ONE (08:22)
[2017-07-15 09:05] VITALS: BP 136/81
[2017-07-15] MEDS: cefTRIAXone 1GM/10ml IVPUSH 10 ML IV SCH (09:10)
[2017-07-15] MEDS: PANTOPRAZOLE 40 MG TAB PO SCH (10:00)
[2017-07-15] MEDS: OSELTAMIVIR 30 MG CAP PO SCH (10:00)
[2017-07-15] MEDS: MEGESTROL ACET 400MG/10ML ORAL SUSP PO SCH (10:00)
[2017-07-15] MEDS: ENOXAPARIN SOD 40 MG/0.4 ML SYRINGE SC SCH (10:00)
[2017-07-15] MEDS: DILTIAZEM HCL 120MG ER CAP PO SCH (10:28)
[2017-07-15] MEDS: LOSARTAN POTASSIUM 50 MG TAB PO SCH (10:29)
[2017-07-15 16:06] VITALS: BP 136/81
[2017-07-15 17:02] VITALS: BP 139/69
[2017-07-15] MEDS ORDERED: NYSTATIN (MOUTH-THROAT) 500,000 UNITS/5 ML SUSP MT SCH (18:00)
== END 2017-07-15 19:06 | disposition home or self-care (01) | DRG 177 ==
LOC: EDBD 18:33 → EDSEX 18:33 → ER 18:34 → OVERFLOW 18:35 → WEST WING 07-10 17:15
PROVIDERS: ADMIT Nurse Practitioner Family; ATTEND Internal Medicine
PROC: 0DB68ZX Excision of Stomach, Via Natural or Artificial Opening Endoscopic, Diagnostic (ICD-10-PCS; 2017-07-15)
PROC: 0DB58ZX Excision of Esophagus, Via Natural or Artificial Opening Endoscopic, Diagnostic (ICD-10-PCS; principal; 2017-07-15 11:01)
DX: J69.0 Pneumonitis due to inhalation of food and vomit (principal); K26.4 Chronic or unspecified duodenal ulcer with hemorrhage; I48.91 Unspecified atrial fibrillation; E86.0 Dehydration; N12 Tubulo-interstitial nephritis, not specified as acute or chronic; I11.0 Hypertensive heart disease with heart failure; I50.9 Heart failure, unspecified; E78.5 Hyperlipidemia, unspecified; E87.6 Hypokalemia; F41.9 Anxiety disorder, unspecified; I25.10 Atherosclerotic heart disease of native coronary artery without angina pectoris; M85.80 Other specified disorders of bone density and structure, unspecified site; M10.9 Gout, unspecified; K21.9 Gastro-esophageal reflux disease without esophagitis; R62.7 Adult failure to thrive; Z86.73 Personal history of transient ischemic attack (TIA), and cerebral infarction without residual deficits; Z95.2 Presence of prosthetic heart valve; Z79.899 Other long term (current) drug therapy; Z88.0 Allergy status to penicillin
CPT/HCPCS: 36415; 43239; 71010; 71045; 80048; 80053; 81001; 82140; 82150; 82378; 83605; 83690; 83735; 83880; 84484; 85025; 85610; 87081; 87086; 93005; 94640; 96361; 96374; G9035; J1956; J2250; J2405

== ENCOUNTER → 2017-10-09 | Outpatient (CLI) | payer OTHER ==
[~2017-10-09] MED LIST changes: +CIPR-173 PO; +CLON0.1T PO; +DILT240C49 PO; -DILT240C59 PO; -SACC250C PO
[2017-10-09 16:02] LABS: Basophils # (auto) 0.1 uL; Basophils % (auto) 0.5 % (0.0-2.0); Eosinophils # (auto) 0.2 uL; Eosinophils % (auto) 1.5 % (0.0-7.0); Hematocrit 43.2 % (41.0-53.0); Hemoglobin 14.3 g/dL (13.5-17.5); Lymphocytes # (auto) 2.6 uL; Lymphocytes % (auto) 24.8 % (10.0-50.0); Mean Corpuscular Hemoglobin 32.7 pg (28.0-32.0); Mean Corpuscular Hgb Conc. 33.2 g/dL (32.0-36.0); Mean Corpuscular Volume 98.6 fL (80.0-100.0); Monocytes # (auto) 1.1 uL; Monocytes % (auto) 10.1 % (0.0-12.0); Neutrophils # (auto) 6.8 uL; Neutrophils % (auto) 63.1 % (37.0-80.0); Platelet Count (auto) 295 10^3/uL (140-450); Red Blood Cells 4.38 10^6/uL (4.5-5.90); Red Cell Distribution Width 16.1 % (11.8-14.3); White Blood Cell 10.7 10^3/uL (4.4-10.8)
[2017-10-09 16:22] LABS: Urine Bacteria NONE SEEN /hpf (None Seen); Urine Blood Negative /uL (Negative); Urine Mucus FEW (None Seen); Urine Specific Gravity 1.017 (1.001-1.035); Urine WBC 2 /hpf (0 - 3)
== END | disposition home or self-care (01) ==
LOC: LAB 15:36
PROVIDERS: ATTEND Internal Medicine
DX: I10 Essential (primary) hypertension (principal); K26.5 Chronic or unspecified duodenal ulcer with perforation
CPT/HCPCS: 36415; 81001; 85025

== ENCOUNTER → 2018-12-21 | Outpatient (CLI) | payer OTHER ==
[~2018-12-21] MED LIST changes: +ONDA-144 PO; -ONDA4TAB5 PO
[2018-12-21 15:53] LABS: BUN/Creatinine Ratio 13.6; Calcium 8.7 mg/dL (8.5-10.1); Potassium 3.9 mmol/L (3.5-5.1)
== END | disposition home or self-care (01) ==
LOC: LAB 15:07
PROVIDERS: ATTEND Internal Medicine
DX: I11.0 Hypertensive heart disease with heart failure (principal); I50.9 Heart failure, unspecified; M79.89 Other specified soft tissue disorders
CPT/HCPCS: 36415; 80048; 83880

== ENCOUNTER 2018-12-29 16:22 | Inpatient (IN) | payer OTHER ==
[~2018-12-29] VITALS: Ht 165.1 cm; Wt 64.6 kg
[~2018-12-29 16:22] MED LIST changes: -ONDA-144 PO; +ONDA4TAB5 PO
[2018-12-29] MEDS ORDERED: ONDANSETRON HCL 4 MG/2 ML VIAL IV PRN (20:15)
[2018-12-29] MEDS ORDERED: MORPHINE SULF INJ 2 MG/ML SYRINGE 1ML IV PRN ×2 (20:15)
[2018-12-29] MEDS ORDERED: NITROGLYCERIN 0.4 MG SL TAB SL PRN (20:15)
[2018-12-29] MEDS ORDERED: HYDROcodone-ACET 5/325MG TAB PO PRN (20:15)
[2018-12-29] MEDS ORDERED: ACETAMINOPHEN 500 MG TAB PO PRN (20:15)
[2018-12-29] MEDS: DOCUSATE SOD 100 MG CAP PO SCH (21:25)
[2018-12-29] MEDS: PRAVASTATIN SODIUM 20 MG TAB PO SCH (21:25)
--- NOTE | 2018-12-29 21:25 | NUR ---
NEURO CONSULT CALLED TO PBX AT 2125 DR.ZANG VENEGAS
--- NOTE | 2018-12-29 22:50 | NUR ---
RT NOTE: PT ON 3LPM NC SPO2 97% HR 81, RR 18. BS DECREASED WITH SOME FAINT CRACKLES. PT HAS STRONG PRODUCTIVE COUGH. SITTER AT BEDSIDE. PT AWAKE WITH NO DISTRESS NOTED. NO TX INDICATED AT THIS TIME.
[2018-12-30] VITALS (10 sets, daily range): BP systolic 100–167; BP diastolic 50–113
[2018-12-30] MEDS ORDERED: IPRATROPIUM BROM 0.5 MG/2.5ML INH SOL NEB PRN (02:00)
[2018-12-30] MEDS ORDERED: ALBUTEROL SULF 2.5 MG/0.5ML(0.5%) NEB SOLN NEB PRN (02:00)
--- NOTE | 2018-12-30 02:00 | NUR ---
PRACTICAL NURSING TEACHER paged. Patient HR 140S
--- NOTE | 2018-12-30 02:15 | NUR ---
DIPLOMATIC INTERPRETER paged. Patient HR remains elevated. Awaiting response
[2018-12-30] MEDS ORDERED: DILTIAZEM HCL 120MG ER CAP PO ONE ×3 (02:45→03:15)
[2018-12-30] MEDS ORDERED: diphenhdrAMINE HCL 50 MG/1 ML VL IV ONE (02:45)
--- NOTE | 2018-12-30 02:45 | NUR ---
One time Cardizem ER ordered per BUILDING MOVER. One time Benadryl for agitation ordered. Will carry out orders.
[2018-12-30] MEDS ORDERED: diphenhdrAMINE HCL 50 MG/1 ML VL ONE (02:50)
--- NOTE | 2018-12-30 04:56 | NUR ---
Spoke with ASSOCIATE FINANCIAL REPRESENTATIVE, she is aware of elevated heart rate. Elevated SBP addressed. See EMR for further info
[2018-12-30 05:16] LABS: Hematocrit 37.5 % (41.0-53.0); Hemoglobin 12.4 g/dL (13.5-17.5); Mean Corpuscular Hemoglobin 29.8 pg (28.0-32.0); Mean Corpuscular Volume 90.2 fL (80.0-100.0); Platelet Count (auto) 240 10^3/uL (140-450); Red Blood Cells 4.16 10^6/uL (4.5-5.90); Red Cell Distribution Width 14.5 % (11.8-14.3); White Blood Cell 10.1 10^3/uL (4.4-10.8)
[2018-12-30 05:25] LABS: Potassium 3.9 mmol/L (3.5-5.1)
[2018-12-30] MEDS ORDERED: cloNIDine 0.2 mg/24hr 7DAY PATCH TD SCH (05:30)
[2018-12-30 05:32] LABS: BUN/Creatinine Ratio 28.8; Calcium 9.2 mg/dL (8.5-10.1)
[2018-12-30 05:43] LABS: Basophils % (manual) 0 (0.0-2.0); Blast Cells 0; Eosinophils % (manual) 0 (0-7); Metamyelocytes % 0; Myelocytes % 0; Promyelocytes % 0; Reactive Lymphocytes 0
[2018-12-30] MEDS: cloNIDine HCL 0.1 MG TAB PO SCH ×4 (06:00→23:41)
[2018-12-30] MEDS ORDERED: cloNIDine 0.2 mg/24hr 7DAY PATCH TD ONE (06:00)
[2018-12-30 07:32] LABS: Band Neutrophils % (manual) 2; Lymphocytes % (manual) 25 (10.0-50.0); Monocytes % (manual) 8 (0-12)
--- NOTE | 2018-12-30 08:00 | NUR ---
Opening Shift Note Assumed care of patient, awake and alert. Patient confused A&O x self only. Patient speaking in Cymraes and also another language. Patient has Mitts on both hands, PMSC intact bilateral. Patient on 2L NC saturation at 97%. Patient on the monitor. Right upper arm triple lumen PICC saline locked, dressing changed 12/27, PICC line patent, clean, dry, and intact. Sitter at bedside (Annunciata). No S/S of distress/SOB or pain. Instructed on POC and to call for assist PRN. Will continue to monitor.
--- NOTE | 2018-12-30 08:15 | NUR ---
Attempted to feed patient breakfast. Patient refused at this time. SitGutierrez at bedside will attempt to feed him again later. Will continue to monitor.
--- NOTE | 2018-12-30 08:30 | NUR ---
Devon Diaz INCIDENT MANAGER at bedside.
[2018-12-30] MEDS ORDERED: LABETALOL HCL 5 MG/ML ML 20ML VIAL IV PRN (08:45)
--- NOTE | 2018-12-30 08:45 | NUR ---
Patient Renetta at bedside. assisted patient in eating about 15% of breakfast. Will continue to monitor.
--- NOTE | 2018-12-30 09:50 | NUR ---
Dr. Cortes at bedside.
[2018-12-30] MEDS: DOCUSATE SOD 100 MG CAP PO SCH ×2 (10:47→21:52)
[2018-12-30] MEDS: FAMOTIDINE 20 MG TAB PO SCH (10:47)
[2018-12-30] MEDS: ASPirin-EC 81 mg tab PO SCH (10:47)
[2018-12-30] MEDS: D5W/SOD CHLO 0.9% 1,000 ML IV SCH ×2 (10:48→21:53)
[2018-12-30] MEDS: DILTIAZEM HCL 120MG ER CAP PO SCH (10:48)
--- NOTE | 2018-12-30 11:26 | NUR ---
Patient resting at this time. Family at bedside. Will continue to monitor.
[2018-12-30 11:46] LABS: Urine Bacteria NONE SEEN /hpf (None Seen); Urine Blood 1+ /uL (Negative); Urine Specific Gravity 1.032 (1.001-1.035); Urine WBC <1 /hpf (0 - 3)
[2018-12-30 11:54] LABS: Protein, Urine 88.1 mg/dL (0.0-11.9)
--- NOTE | 2018-12-30 12:30 | NUR ---
helped patient to eat about 25% of lunch tray. Patient has poor appetite and needs encouragement to eat. Patient now resting at this time. Will continue to monitor.
--- NOTE | 2018-12-30 15:30 | NUR ---
Patient resting at this time. Mitts still on bilateral PMSC intact. Will continue to monitor.
--- NOTE | 2018-12-30 16:30 | NUR ---
Patient sleeping at this time. No S/S of pain/SOB or distress noted. Mitts still on patient, PMSC intact bilateral. will continue to monitor.
--- NOTE | 2018-12-30 18:16 | NUR ---
End of shift note: Patient resting at this time. Patient confused A&O x self only. Patient speaking in Kazakh and also another language. Patient has Mitts on both hands, PMSC intact bilateral. Patient on 2L NC saturation at 100%. Patient on the monitor. Right upper arm triple lumen PICC running D5 NS at 75ml/hr, patent, clean, dry, and intact. Sitter at bedside (Mary). No S/S of distress/SOB or pain. Will continue to monitor. Report to be given to security shift supervisor RN.
--- NOTE | 2018-12-30 20:00 | NUR ---
Opening Shift Note Assumed care of patient, awake and alert to self only. Patient's at bedside with sitter at bedside. No S/S of distress/SOB or pain. Complete physical assessment done at this time: see interventions. Will continue to monitor closely.
[2018-12-30] MEDS: PRAVASTATIN SODIUM 20 MG TAB PO SCH (21:51)
--- NOTE | 2018-12-30 22:34 | NUR ---
Respiratory note: ASSESSED PT FOR PRN MED NEB AT THIS TIME, NO RESP DISTRESS NOTED, NO TX INDICATED, PULSE OX 93% ON RA, HR 84, RR 24, BILATERAL BS CLEAR.
[2018-12-31] VITALS (7 sets, daily range): BP systolic 99–152; BP diastolic 45–76
--- NOTE | 2018-12-31 03:02 | NUR ---
ROUNDS PATIENT RESTING WITH EYES CLOSED. NO S/S OF DISTRESS OR SOB. POX 95% ON RA. CONTINUE TO MONITOR.
[2018-12-31] MEDS: cloNIDine HCL 0.1 MG TAB PO SCH ×4 (05:08→23:29)
--- NOTE | 2018-12-31 05:30 | NUR ---
AM CARE COMPLETE BED BATH PROVIDED USING CHG WIPES AND WARM WASH CLOTHS. SKIN INTEGRITY REASSESSED AT THIS TIME: REMAINS INTACT. OPTIFOAM GENTLE PLACED ON SACRUM FOR PREVENTATIVE . PARTIAL LINEN CHANGE DONE AND NEW GOWN PLACED ON PATIENT. REPOSITIONED IN BED FOR COMFORT. SITTER REMAINS AT BEDSIDE FOR PATIENT SAFETY. PATIENT CONTINUES TO BE ALERT TO SELF ONLY AND SOMETIMES IS AGGRESIVE TOWARDS STAFF. VS WNL : HR 85, POX 95 ON 2L NC. CONTINUE TO MONITOR.
[2018-12-31 06:07] LABS: Phosphorus 2.2 mg/dL (2.5-4.90)
[2018-12-31 06:14] LABS: Albumin 2.6 g/dL (3.4-5.0); Calcium 8.6 mg/dL (8.5-10.1); Potassium 3.8 mmol/L (3.5-5.1)
[2018-12-31 06:18] LABS: BUN/Creatinine Ratio 25.3; Bilirubin, Total 0.7 mg/dL (0.2-1.0); Total Protein 6.4 g/dL (6.4-8.2)
--- NOTE | 2018-12-31 06:42 | NUR ---
PT AWAKE AND ATTEMPTING TO KICK THE SITTER AT BEDSIDE PATIENT REORIENTED TO PLACE PATIENT STATED HE HAD A BOWEL MOVEMENT,BROWN SOFT SMEAR NOTED. PERINEAL AREA CLEANSED WITH WARM SOAPY WASH CLOTHS AND REPOSITIONED IN BED FOR COMFORT, PATIENT NOW MORE CALM AND AWAKE IN BED. CONTINUE TO MONITOR.
--- NOTE | 2018-12-31 07:06 | NUR ---
CARE ENDORSED TO DAY SHIFT RN TANISHA PATIENT IN BED WITH NO S/S OF DISTRESS OR SOB, POX 98%. SITTER REMAINS AT BEDSIDE FOR PATIENT SAFETY.
--- NOTE | 2018-12-31 07:45 | NUR ---
Opening Shift Note Assumed care of patient, awake and alert, able to tell me his name, , his 's name, and he knew he is in the hospital. No S/S of distress/SOB or pain. Instructed on POC and to call for assist PRN, will continue to monitor for changes Q1hr and PRN.
--- NOTE | 2018-12-31 08:17 | NUR ---
Mouth care provided, sitting up on the bed, sitter at the bedside, breakfast tray provided.
[2018-12-31] MEDS: ASPirin-EC 81 mg tab PO SCH (09:41)
[2018-12-31] MEDS: DOCUSATE SOD 100 MG CAP PO SCH ×2 (09:42→22:04)
[2018-12-31] MEDS: FAMOTIDINE 20 MG TAB PO SCH (09:42)
[2018-12-31] MEDS: DILTIAZEM HCL 120MG ER CAP PO SCH (09:43)
--- NOTE | 2018-12-31 10:00 | NUR ---
Patient had breakfast around 50%, no aspiration noted.
--- NOTE | 2018-12-31 10:15 | NUR ---
Patient had small bowel movement (like smear, soft).
--- NOTE | 2018-12-31 10:30 | NUR ---
Dr. Anand at the bedside, received order to transfer to [facility], his not at the bedside at this time, will discuss with her to make aware about the plan of care.
--- NOTE | 2018-12-31 11:12 | NUR ---
His made aware about the transfer to Tele and D/C planning. She stated that she doesn't have help at home and patient didn't get strong yet, recommend for Home health for home safety and PT and social service, they made aware, will think about it, paged to make aware, will wait a call back regarding family concerning.
--- NOTE | 2018-12-31 11:17 | NUR ---
Received a call from Dr. Anand, received order for Social service consult for Home safety and PT per family request. His made aware.
--- NOTE | 2018-12-31 11:35 | NUR ---
Patient went to Radiology department for Head CT, transfer via the hospital bed and O2 tank.
--- NOTE | 2018-12-31 11:55 | NUR ---
Dr. Waldrop and Dr. Ott at the bedside, plan of care discussed with patient and his , they made aware about the plan.
[2018-12-31] MEDS: D5W/SOD CHLO 0.9% 1,000 ML IV SCH (12:32)
[2018-12-31] MEDS ORDERED: POTASSIUM PHOSPHATE 44 MEQ in D5W 5% 250 ML IV ONE (13:30)
--- NOTE | 2018-12-31 13:30 | NUR ---
Patient still has period of confusion, at his time, he trying to get up, said that he would like to go home today, couldn't tell me his 's name, pulling thing out, MITT paddles applied at this time, his at the bedside. Will continue to monitor and care.
--- NOTE | 2018-12-31 13:39 | NUR ---
Dr. Cortes at the bedside, plan of care discussed with patient and his , received new order, will continue to monitor.
--- NOTE | 2018-12-31 14:34 | NUR ---
Patient is sleeping at this time, HR 52, BP 113/58 mmHg, RR 18, O2 saturation 99%, RT took ABG, will continue to monitor and care.
[2018-12-31] MEDS: HALOPERIDOL LACTATE 5 MG/ML INJ VIAL IM PRN (15:34)
--- NOTE | 2018-12-31 15:35 | NUR ---
Patient trying to get up, kicking staffs, pulling MITT paddles out, talking his language at this time, his at the bedside, Hadol IM given as PRN order for agitation, will continue to monitor and care.
--- NOTE | 2018-12-31 17:02 | NUR ---
Patient lying on the bed, able to rest after Hadol given, his at the bedside. Will continue to monitor.
--- NOTE | 2018-12-31 18:25 | NUR ---
Patient woke up and tried to get out off the bed, helped patient with sitting up on the bed, assisting patient with Dinner, patient had 1 cup of Pudding, 1 cup of fruit, and 1 box of [place] juice. No aspiration noted. Still confused at this time but he spoken in German, couldn't tell me his full name and his , will continue to monitor and care.
--- NOTE | 2018-12-31 20:05 | NUR ---
Opening Shift Note Assumed care of patient, resting in bed with eyes closed, no S/S of distress/SOB or pain. Physical assessment done at this time: see interventions. Instructed on POC and to call for assist PRN, will continue to monitor for changes closely. Patient now tele status.
--- NOTE | 2018-12-31 20:33 | NUR ---
Respiratory note: PT ASSESSED FOR PRN MED NEB TX. PT DENIES ANY SOB AT THIS TIME. POX 100% ON 1L, HR 101, RR 20. NO INDICATION FOR PRN. SITTER INFORMED TO HAVE RT PAGED IF NEEDED.
--- NOTE | 2018-12-31 21:28 | NUR ---
RECEIVED REPORT FROM VIVIENNE JENNINGS RN
--- NOTE | 2018-12-31 21:28 | NUR ---
CARE ENDORSED TO GALA SANDOVAL PATIENT GOING TO TELE BED 293A
--- NOTE | 2018-12-31 21:40 | NUR ---
DICK pt transferred to floor JOSE KELLER transfered to 293A via gurney on bus driver/monitor and portable 02. All patient medications and personal belongings transferred with patient to receiving floor. Patient care transfered to Beatris CEDEÑO. No distress or SOB noted upon departure.
--- NOTE | 2018-12-31 21:40 | NUR ---
PATIENT RESTING IN BED, NO S/S DISTRESS. PT ON 2L NC, RESPIRATIONS EVEN EQUAL AND UNLABORED. SAFETY MAINTAINED WITH BED RAILS UPX2, LOCKED AND IN LOWEST POSITION WITH CALL JACKSON WITHIN REACH. SITTER AT BEDSIDE.
[2018-12-31] MEDS: PRAVASTATIN SODIUM 20 MG TAB PO SCH (22:04)
[2019-01-01] MEDS: D5W/SOD CHLO 0.9% 1,000 ML IV SCH (02:00)
--- NOTE | 2019-01-01 03:40 | NUR ---
HEAD CT RADIOLOGY DR. IBARRA CALLED REGARDING HEAD CT READING. NEW SMALL HEMORRHAGE NOTED IN THE POSTERIOR LATERAL LEFT BASAL GANGLIA. HOSPITALIST SHMUEL, AWAITING CALL BACK. Addendum: 01/01/19 at 0404 by LORI TAM RN RN HOSPITALIST RETURNED MARIO. ARLENE SILVA NOTIFIED OF HEAD CT READING. Addendum: 01/01/19 at 0412 by LORI TAM RN RN ARLENE SILVA CALLED AGAIN, PAGE DR. العلي FOR RECOMMENDATIONS.
--- NOTE | 2019-01-01 04:13 | NUR ---
DR. SEVERIANO MI, AWAITING CALL BACK. Addendum: 01/01/19 at 0443 by LORI TAM RN RN DR. العلي REPLACHELLE. AWAITING CALL BACK. Addendum: 01/01/19 at 0518 by LORI TAM RN RN DR. SEVERIANO VARELAAGED. AWAITING STACIE LOPEZ.
[2019-01-01 05:00] VITALS: BP 115/54
--- NOTE | 2019-01-01 05:34 | NUR ---
ARLENE SILVA CALLED UNABLE TO REACH DR. العلي. PATIENT HAS SLURRED SPEECH BUT PRESENT ON ADMISSION. NO FURTHER DEFICITS. PATIENT AROUSABLE, NO S/S DISTRESS. VITAL SIGNS STABLE. BP 115/54, HR 45, RR 18, O2 94, T 97.5. WILL CONTINUE TO MONITOR. AWAITING STAT LABS.
[2019-01-01] MEDS: cloNIDine HCL 0.1 MG TAB PO SCH (05:39)
--- NOTE | 2019-01-01 06:11 | NUR ---
REPAGED DR. العلي, AWAITING CALL BACK.
--- NOTE | 2019-01-01 06:39 | NUR ---
DR. العلي RETURNED PAGE UPDATED ON RESULTS OF HEAD CT. DR. العلي STATES HE WILL COME IN RIGHT NOW TO SEE THE PATIENT.
--- NOTE | 2019-01-01 07:30 | NUR ---
TRANSFER REQUEST KELLIE CEDEÑO FROM [facility] REQUESTING INFORMATION ON WHY PATIENT NEEDS TO BE TRANSFERRED SINCE [facility] HAS A NEUROLOGY SERVICE. INFORMED THAT PT HAS SMALL HEMORRHAGE AND NEEDS HIGHER LEVEL OF CARE. ARLENE SILVA PAGED TO FOLLOW UP TO WHY PATIENT NEEDS TO BE TRANSFERRED. ARLENE SILVA STATES PATIENT NEEDS NEUROSURGICAL CARE, DR. العلي UNABLE TO PROVIDE NEUROSURGERY. UNABLE TO CONTACT KELLIE TO FOLLOW UP, NOTIFIED DAY SHIFT GALA YUSUF TO UPDATE KELLIE WHEN SHE RETURNS CALL.
--- NOTE | 2019-01-01 07:44 | NUR ---
NOTIFIED BY LORI CEDEÑO PT IS TO BE TRANSFERRED TO [facility] FOR NEURO SURGERY PER DR SILVA, PT HAS A HEMORRHAGE IN THE BRAIN. LORI REPORTS DR HEARN HAS BEEN NOTIFIED AND IS ON HIS WAY. KELLIE CEDEÑO AT [facility] IS ORGANIZING TRANSFER. PT WILL BE TRANSPORTED VIA [facility].
--- NOTE | 2019-01-01 07:50 | NUR ---
PATIENT RESTING IN BED, SITTER AT BEDSIDE. PT REPORTS NO PAIN AT THIS TIME. SIDE RAILS UP X2, BED IN LOWEST LOCKED POSITION. PT SPEECH IS SLURRED AND DIFFICULT TO UNDERSTAND. PT NOTIFIED HE IS BEING TRANSFERED TO [facility]. PT ASKED WHY. PT NOTIFIED [facility] WILL PROVIDE A HIGHER LEVEL OF CARE. PT NODDED HEAD.
--- NOTE | 2019-01-01 08:01 | NUR ---
CALLED JOVANA IN CASE MANAGEMENT AND NOTIFIED HER PT NEEDS TO BE TRANSFERRED TO [facility]. JOVNAA REPORTS SHE NEEDS AN ORDER. CALLED PBX, DR SILVA IS GONE FOR THE DAY.
--- NOTE | 2019-01-01 08:09 | NUR ---
I faxed higher level of care packet to [facility].
--- NOTE | 2019-01-01 08:10 | NUR ---
CALLED DR RUVALCABA AND NOTIFIED MD SILVA WANTS PT TRANSFERRED. DR RUVALCABA AWARE, DR RUVALCABA REPORTS HE WILL BE IN TO TO SEE PT IN [address] العلي, DR العلي CALLED BACK, DR العلي REPORTS HE IS AT [facility] AND WILL BE IN TODAY TO SEE PT. NOTIFIED DR. العلي PT MAY BE TRANSFERRED TO [facility], DR العلي AWARE. HE REPORTS HE CANNOT DO ANYTHING UNTIL HE SEE'S THE PATIENT.
--- NOTE | 2019-01-01 08:16 | NUR ---
I placed [facility] on will call pending transfer to [facility].
--- NOTE | 2019-01-01 08:25 | NUR ---
PT A AND O X1. PT KNOW NAME BUT CANNOT SAY , WHEREABOUTS OR PRESIDENT.
--- NOTE | 2019-01-01 08:34 | NUR ---
SPOKE WITH DR PEG MD REPORTS TO KEEP THE PICC LINE AND ESPINAL.
[2019-01-01 08:42] LABS: Basophils # (auto) 0 uL; Basophils % (auto) 0.6 % (0.0-2.0); Eosinophils # (auto) 0.3 uL; Eosinophils % (auto) 4.3 % (0.0-7.0); Hematocrit 35.7 % (41.0-53.0); Hemoglobin 11.3 g/dL (13.5-17.5); Lymphocytes # (auto) 1.2 uL; Lymphocytes % (auto) 16.9 % (10.0-50.0); Mean Corpuscular Hemoglobin 28.9 pg (28.0-32.0); Mean Corpuscular Hgb Conc. 31.6 g/dL (32.0-36.0); Mean Corpuscular Volume 91.3 fL (80.0-100.0); Monocytes # (auto) 0.8 uL; Monocytes % (auto) 10.4 % (0.0-12.0); Neutrophils % (auto) 67.8 % (37.0-80.0); Nucleated Red Blood Cells % 0.1 %; Platelet Count (auto) 284 10^3/uL (140-450); Red Blood Cells 3.91 10^6/uL (4.5-5.90); Red Cell Distribution Width 14.9 % (11.8-14.3); White Blood Cell 7.4 10^3/uL (4.4-10.8)
--- NOTE | 2019-01-01 08:58 | NUR ---
PT TERRANCE NOTIFIED PT IS TRANSFERRING TO [facility]. TERRANCE AT BEDSIDE. TERRANCE SIGNED TRANSFER AGREEMENT.
[2019-01-01 08:59] LABS: Albumin 2.8 g/dL (3.4-5.0); BUN/Creatinine Ratio 18.2; Calcium 8.4 mg/dL (8.5-10.1); Potassium 3.9 mmol/L (3.5-5.1)
[2019-01-01 09:02] LABS: Bilirubin, Total 0.7 mg/dL (0.2-1.0); Total Protein 6.6 g/dL (6.4-8.2)
--- NOTE | 2019-01-01 09:04 | NUR ---
RECEIVED REPORT FROM AWAIS PATTON, IMAGES HAVE ALREADY BEEN SENT TO [facility], NO DISC NEEDED. COPY IN ZUCHEMT, IMAGES SENT VIA [facility].
--- NOTE | 2019-01-01 09:27 | NUR ---
SPOKE WITH JOVANA IN CASE MANAGEMENT. SHE REPORTS [facility] WANTS TO WAIT FOR DR HEARN TO SEE PATIENT BEFORE ACCEPTING. CALLED PBX AND PAGED DR HEARN TO NOTIFY HIM. JOVANA REPORTS SHE WILL NOTIFY DR RUVALCABA.
--- NOTE | 2019-01-01 09:27 | NUR ---
I called [facility] transfer center [phone] and spoke with Angely-she said her neurologist wants to speak with Dr Bassett after he comes to see patient-because there may not be anything different that they would do there for the patient-I called patient's nurse Maggie to make her aware-she will contact Dr. Bassett again to find out when he is coming. I spoke with Dr. Denise Anand to make him aware as well.
--- NOTE | 2019-01-01 09:29 | NUR ---
DR HEARN CALLED BACK, NOTIFIED DR NADIYA HO IS WAITING TO ACCEPT PATIENT UNTIL DR HEARN SEE'S HIM. AWARE.
[2019-01-01 09:40] LABS: INR 1.04 (0.9-1.15); Partial Thromboplastin Time 30.9 sec (23.64-32.05)
[2019-01-01 09:44] VITALS: BP 115/54
[2019-01-01] MEDS: DILTIAZEM HCL 120MG ER CAP PO SCH (10:00)
[2019-01-01] MEDS: DOCUSATE SOD 100 MG CAP PO SCH ×2 (10:08→21:40)
[2019-01-01] MEDS: FAMOTIDINE 20 MG TAB PO SCH (10:08)
[2019-01-01] MEDS ORDERED: POTASSIUM CHLORIDE 20 MEQ in D5W/SOD CHL 0.45% 1,000 ML IV SCH (10:30)
--- NOTE | 2019-01-01 11:51 | NUR ---
NOTIFIED DR RUVALCABA PT HR IN 40'S TO 50'S. AWARE, NEW ORDERS TO DC CARDIZEM AND CATAPRES.
--- NOTE | 2019-01-01 11:52 | NUR ---
CALLED JOVANA IN CASE MANAGEMENT PER MD REQUEST, NOTIFIED HER PT GOING HOME ON HOSPICE TOMORROW.
--- NOTE | 2019-01-01 11:55 | NUR ---
I received a call from Nurse Serrano letting me know that Dr. Anand was going to discharge the patient home tomorrow with Hospice-I asked her to have the transfer to higher level of care order cancelled.
--- NOTE | 2019-01-01 11:58 | NUR ---
Respiratory note: ROUTINE PRN TX CHECK. HR 49, RR 16, POX 99% ON 2L/M NC, BREATH SOUNDS ARE CLEAR. NO SOB OR DISTRESS NOTED. PT WAS NOTIFY TO HAVE RN PAGE RT FOR MN TX IF NEEDED.
[2019-01-01 12:48] VITALS: BP 133/60
[2019-01-01] MEDS: D5W/SOD CHL 0.45%/KCL 20MEQ 1,000 ML IV SCH (15:37)
--- NOTE | 2019-01-01 15:40 | NUR ---
RECEIVED CALL FROM RANDEE LOPEZ. RANDEE IS REQUESTING THE NAME OF THE HOSPICE SERVICE THAT DR MILTON RECOMMENDS. CALLED PBX AND PAGED DR MILTON, AWAITING CALL BACK.
--- NOTE | 2019-01-01 15:40 | NUR ---
assessment Patient is a 83 year old male who is confused. Per patients Renetta prior to admission patient lived home with her and functioned with her assistance. Per Renetta patient has a fww for home use. Per Renetta patients PCP is Dr Ott. I informed Renetta patient has a ss consult to cancel transfer to [facility] and patient will discharge home on hospice tomorrow per Dr Ott. I provided Renetta with a list of medicare providers. Per Renetta she wants who Dr Ott picks for hospice. Per Dr Ott he recommended [facility]. MD order has been sent to [facility]. Waiting on reply back now. Addendum: 01/01/19 at 1547 by Nuha CRAIN Amended: Links added.
--- NOTE | 2019-01-01 15:45 | NUR ---
DR MILTON CALLED BACK, HE RECOMMENDS [facility]. RANDEE NOTIFIED, RANDEE REQUESTS SS CONSULT FOR HOSPICE EVALUATION.
--- NOTE | 2019-01-01 16:06 | NUR ---
SPOKE WITH DR HEARN. DR HEARN REPORTS HE DOESN'T THINK A TRANSFER TO [facility] IS NECESSARY AND HE REPORTS HE DOESN'T BELIEVE THE PATIENT HAS AN ACUTE HEMORRHAGE. JOVANA IN CASE MANAGEMENT NOTIFIED.
--- NOTE | 2019-01-01 16:08 | NUR ---
ASSESSED PT FOR PRN MED NEB BREATHING TX, PT ON 2L NC WITH SPO2 99%, HR 58, RR 20, PT IS SLEEPING AT THIS TIME WITH NO DISTRESS NOTED. FAMILY MEMBER AT BEDSIDE MADE AWARE OF PRN MED NEB TX. WILL CONTINUE TO MONITOR PT.
--- NOTE | 2019-01-01 16:30 | NUR ---
re-assessment Dell from [facility] has met with family and family has signed consents. Waiting on discharge now. Addendum: 01/05/19 at 1239 by Nuha CRAIN Amended: Links added.
[2019-01-01 18:05] VITALS: BP 141/73
--- NOTE | 2019-01-01 19:00 | NUR ---
Opening notes Assumed care, awake, still confused with no signs of distress. On O2 @ 2L/min, Sat 93%, PICC line patent and intact infusing 1/2 NS w/ 20Meq KCl @ 75 ml/hr, young c Addendum: 01/02/19 at 0222 by Everett Kern RN cont. notes.. young catheter draining to a light phil urine. Bed in lowest position with side rails up, bed alarm on. Sitter at bedside.
[2019-01-01] MEDS: PRAVASTATIN SODIUM 20 MG TAB PO SCH (21:40)
[2019-01-01 21:45] VITALS: BP 148/60
--- NOTE | 2019-01-01 23:58 | NUR ---
Large amount of soft, brown stools noted. Complete bed bath done, linens and gown changed. Repositioned for comfort.
[2019-01-02] MEDS: D5W/SOD CHL 0.45%/KCL 20MEQ 1,000 ML IV SCH ×2 (02:16→15:38)
--- NOTE | 2019-01-02 04:21 | NUR ---
PT SEEN SLEEPING ON 2L NC WITH SPO2 92%, BS CLEAR AND DIMINISHED, PRN NEB TX NOT INDICATED AT THIS TIME.
[2019-01-02 04:54] VITALS: BP 127/58
--- NOTE | 2019-01-02 07:00 | NUR ---
Closing notes Resting on bed with no signs of distress. Report given to Veronique CEDEÑO.
--- NOTE | 2019-01-02 07:30 | NUR ---
Respiratory note: HR 81, RR 14, SPO2 95%, BS CLEAR. PRN MN TX NOT INDICATED. NO SIGNS OR SYMPTOMS OF RESPIRATORY DISTRESS NOTED. PT INFORMED TO HIT CALL BUTTON IF FEELING SOB OR WHEEZING.
[2019-01-02 08:00] VITALS: BP 178/97
--- NOTE | 2019-01-02 08:00 | NUR ---
PT RESTING IN BED, SITTER AT BEDSIDE. BED IN LOWEST LOCKED POSITION WITH SIDE RAILS UPX2. PT HAD SMALL AMOUNT OF FORMED BROWN STOOL. PT CLEANED, CHUCKS CHANGED. 650 MLS HAZY YELLOW URINE DRAINED FROM ESPINAL. PT REPORTS NO PAIN AT THIS TIME. PT AND O X 3.
--- NOTE | 2019-01-02 08:54 | NUR ---
[facility] FOR DISCHARGE SENT.
[2019-01-02] MEDS: DOCUSATE SOD 100 MG CAP PO SCH (10:00)
--- NOTE | 2019-01-02 10:08 | NUR ---
SPOKE WITH DR RUVALCABA. NEW ORDERS TO DC PICC AND KEEP ESPINAL. PT IS GOING TO BE DISCHARGED HOME ON HOSPICE.
[2019-01-02] MEDS: FAMOTIDINE 20 MG TAB PO SCH (10:18)
--- NOTE | 2019-01-02 10:21 | NUR ---
GLORY PERZE, PT HAD A LARGE BM LAST NIGHT PER REPORT AND A SMALL ONE THIS MORNING.
[2019-01-02 12:17] VITALS: BP 160/69
--- NOTE | 2019-01-02 12:47 | NUR ---
CALLED PBX AND PAGED PHYSIC[facility] TO SET UP HOSPICE, AWAITING CALL BACK.
--- NOTE | 2019-01-02 13:25 | NUR ---
JOVANA IN CASE MANAGEMENT CALLED BACK, SHE REPORTS SHE WILL CALL [facility] TO CONFIRM. ARSENIO FROM [facility] CAME, SHE REPORTS SHE IS DOING THE INTAKE AND WILL BE AT PT BEDSIDE. JOVANA IN CASE MANAGEMENT NOTIFIED. ARSENIO REPORTS TRANSPORT MAY TAKE A WHILE THE PATIENT DME NEEDS TO BE DELIVERED FIRST AND TRANSPORT STILL NEEDS TO BE ARRANGED. ARSENIO REPORTS [facility] SETS IT UP.
--- NOTE | 2019-01-02 13:54 | NUR ---
ARSENIO FROM HOSPICE IS TALKING TO PT AND AND BEDSIDE. BP 170/82, PRN LABETALOL GIVEN.
--- NOTE | 2019-01-02 14:21 | NUR ---
PT O2 LEVEL OFF 3 L NC 91, BUT OCCASIONALLY 02 FALLS HIGH 80'S. ARSENIO FROM HOSPICE REPORTS SHE WILL MAKE SURE PT HAS 02 DURING TRANSPORT AND AT HOME. RECHECKED BP, BP 152/71, HR 68.
--- NOTE | 2019-01-02 16:16 | NUR ---
[facility] CALLED, CVICU RN TIME FOR PATIENT IS 1900.
[2019-01-02 16:34] VITALS: BP 157/89
[2019-01-02] MEDS: HALOPERIDOL LACTATE 5 MG/ML INJ VIAL IM PRN (16:57)
--- NOTE | 2019-01-02 17:00 | NUR ---
WELLNESS COORDINATOR REPORTS," HE'S TRYING TO HIT ME..." PT IN BED, PATIENT AGITATED AND WANTING TO GO HOME. PRN HALOPERIDOL GIVEN, WILL CONTINUE TO MONITOR.
--- NOTE | 2019-01-02 19:25 | NUR ---
Opening Shift Note Received report from Veronique CEDEÑO. Assumed care of patient, awake and alert to self only, at bedside. No S/S of distress/SOB or pain. Instructed on POC and to call for assist PRN, will continue to monitor for changes Q1hr and PRN. Awaiting for transport to home on hospice.
--- NOTE | 2019-01-02 20:40 | NUR ---
Discharge instructions given as ordered. Encourage to follow up with PMD as instructed. All questions and concerns addressed. Patient verbalized understanding. Medication reconciliation form completed and copy given to patient. PICC line on R upper arm removed with catheter intact, pressure dressing applied, young catheter left per order. Telemetry unit returned to ICU. Patient taken to vehicle via wheelchair with all personal belongings, accompanied by staff and family member. No distress noted at time of departure.
[2019-01-03] MEDS ORDERED: ASPirin-EC 81 mg tab PO SCH (10:00)
--- NOTE | 2019-01-04 08:13 | NUR ---
Weekend cannon pinion adjuster-I received a page 01/02/19 from nurse Veronique letting me know that this patient was to discharge home on Hospice-I provided her with the number to [facility] to call for transportation.
== END 2019-01-02 20:30 | disposition hospice, home (50) | DRG 64 ==
LOC: DOU IN ICU 21:04 → TELE-WESTW 12-31 21:37
PROVIDERS: ADMIT Nurse Practitioner Acute Care; ATTEND Family Medicine
DX: I63.9 Cerebral infarction, unspecified (principal); N17.0 Acute kidney failure with tubular necrosis; J96.02 Acute respiratory failure with hypercapnia; J96.01 Acute respiratory failure with hypoxia; G93.41 Metabolic encephalopathy; I13.0 Hypertensive heart and chronic kidney disease with heart failure and stage 1 through stage 4 chronic kidney disease, or unspecified chronic kidney disease; E87.3 Alkalosis; E87.0 Hyperosmolality and hypernatremia; R47.81 Slurred speech; I25.2 Old myocardial infarction; R29.6 Repeated falls; I25.10 Atherosclerotic heart disease of native coronary artery without angina pectoris; I48.2 Chronic atrial fibrillation; J44.9 Chronic obstructive pulmonary disease, unspecified; E78.5 Hyperlipidemia, unspecified; E86.0 Dehydration; I73.9 Peripheral vascular disease, unspecified; N18.9 Chronic kidney disease, unspecified; Z51.5 Encounter for palliative care; E83.39 Other disorders of phosphorus metabolism; N27.1 Small kidney, bilateral; I50.9 Heart failure, unspecified; E78.00 Pure hypercholesterolemia, unspecified; M10.9 Gout, unspecified; K21.9 Gastro-esophageal reflux disease without esophagitis; Z79.02 Long term (current) use of antithrombotics/antiplatelets; Z79.899 Other long term (current) drug therapy; Z87.891 Personal history of nicotine dependence; Z88.0 Allergy status to penicillin; Z79.82 Long term (current) use of aspirin; Z95.0 Presence of cardiac pacemaker; Z87.11 Personal history of peptic ulcer disease
CPT/HCPCS: 36415; 70450; 76775; 80048; 80053; 80061; 81001; 82570; 83880; 84100; 84156; 84300; 84439; 84443; 84550; 85007; 85025; 85027; 85610; 85730; 87081; 94640; G0378; J7042; J7060

== ENCOUNTER 2019-09-09 11:15 | Emergency (ER) | payer OTHER ==
[~2019-09-09] VITALS: Ht 165.1 cm; Wt 72.6 kg
[~2019-09-09 11:15] MED LIST changes: +ONDA-144 PO; -ONDA4TAB5 PO
[2019-09-09 11:44] LABS: Basophils # (auto) 0.1 uL; Basophils % (auto) 0.7 % (0.0-2.0); Eosinophils # (auto) 0.5 uL; Eosinophils % (auto) 6.7 % (0.0-7.0); Hematocrit 36.8 % (41.0-53.0); Hemoglobin 11.9 g/dL (13.5-17.5); Lymphocytes # (auto) 3.2 uL; Lymphocytes % (auto) 42.7 % (10.0-50.0); Mean Corpuscular Hemoglobin 29.6 pg (28.0-32.0); Mean Corpuscular Hgb Conc. 32.5 g/dL (32.0-36.0); Mean Corpuscular Volume 91.1 fL (80.0-100.0); Monocytes # (auto) 0.8 uL; Monocytes % (auto) 11.3 % (0.0-12.0); Neutrophils # (auto) 2.9 uL; Neutrophils % (auto) 38.6 % (37.0-80.0); Platelet Count (auto) 186 10^3/uL (140-450); Red Blood Cells 4.03 10^6/uL (4.5-5.90); Red Cell Distribution Width 14.1 % (11.8-14.3); White Blood Cell 7.4 10^3/uL (4.4-10.8)
[2019-09-09 12:02] LABS: Albumin 3.9 g/dL (3.4-5.0); BUN/Creatinine Ratio 10.3; Calcium 9.2 mg/dL (8.5-10.1); Potassium 3.9 mmol/L (3.5-5.1)
[2019-09-09 12:04] LABS: Bilirubin, Total 0.6 mg/dL (0.2-1.0); Total Protein 8.3 g/dL (6.4-8.2)
[2019-09-09 12:28] VITALS: BP 141/51
== END 2019-09-09 15:14 | disposition home or self-care (01) ==
LOC: ER 11:15 → EDBD 11:15 → ER 15:14
DX: S09.90XA Unspecified injury of head, initial encounter (principal); I48.91 Unspecified atrial fibrillation; I13.0 Hypertensive heart and chronic kidney disease with heart failure and stage 1 through stage 4 chronic kidney disease, or unspecified chronic kidney disease; N18.9 Chronic kidney disease, unspecified; I50.9 Heart failure, unspecified; Z88.0 Allergy status to penicillin; Z79.899 Other long term (current) drug therapy; W19.XXXA Unspecified fall, initial encounter; Y93.89 Activity, other specified; Y99.8 Other external cause status; Y92.89 Other specified places as the place of occurrence of the external cause
CPT/HCPCS: 36415; 70450; 80053; 85025; 93005